=== PATIENT | female | born 1940 | race Hispanic/Latino ===

== ENCOUNTER 2022-04-02 07:40 | Inpatient (IN) | payer MEDICARE ==
[~2022-04-02] VITALS: Ht 147.3 cm; Wt 50.8 kg
[2022-04-02 08:35] LABS: BASOPHILS % 0.3 % (0.0-1.0); EOSINOPHILS # (AUTO) 0.2 (0.0-0.4); EOSINOPHILS % 2.4 % (0.0-6.0); HEMATOCRIT 33.9 % (34.2-44.1); HEMOGLOBIN 10.6 g/dL (12.0-16.0); LYMPHOCYTES % 28.2 % (18.0-39.1); MEAN CORPUSCULAR HEMOGLOBIN 30.8 pg (28-32); MEAN CORPUSCULAR HGB CONC 31.3 g/dL (31-35); MEAN CORPUSCULAR VOLUME 98.5 fL (81-99); MONOCYTES # (AUTO) 0.3 (0.2-0.8); MONOCYTES % 4.4 % (4.4-11.3); NEUTROPHILS # (AUTO) 4.5 (2.1-6.9); NEUTROPHILS % 64.4 % (38.7-80.0); PLATELET COUNT 142 x10e3/uL (140-360); RED BLOOD COUNT 3.44 x10e6/uL (3.6-5.1); RED CELL DISTRIBUTION WIDTH 14.2 % (11.7-14.4)
[2022-04-02 08:42] LABS: ALBUMIN 3.4 g/dL (3.5-5.0); ALBUMIN/GLOBULIN RATIO 0.9 (0.8-2.0); ANION GAP 13.5 mmol/L (8-16); CALCIUM 9.5 mg/dL (8.4-10.2); CREATININE, SERUM 1.03 mg/dL (0.57-1.11); POTASSIUM 3.5 mmol/L (3.5-5.1)
[2022-04-02] MEDS ORDERED: FUROSEMIDE INJ 10 MG/ML 4 ML VIAL IV ONE (10:00)
[2022-04-02 10:10] LABS: CLARITY,URINE CLEAR (CLEAR); COLOR,URINE YELLOW (YELLOW); KETONES,URINE NEGATIVE (NEGATIVE); LEUKOCYTE ESTERASE ,URINE NEGATIVE (NEGATIVE); NITRITE,URINE NEGATIVE (NEGATIVE); PROTEIN,URINE DIPSTICK 2+ (NEGATIVE); URINE UROBILINOGEN 0.2 mg/dL (0.2 - 1)
[2022-04-02 10:30] LABS: BACTERIA,URINE MODERATE /HPF; EPITHELIAL CELLS,URINE FEW /LPF; TRANSITIONAL EPI CELLS,URINE RARE; WBC,URINE (MAN) 0-5 /HPF (0-5)
[2022-04-02 14:46] VITALS: BP 162/72
[2022-04-02 14:52] VITALS: BP 162/72
[2022-04-02] MEDS ORDERED: FOLIC ACID0.4 MG PO (14:59)
[2022-04-02] MEDS ORDERED: PREDNISONE5 MG PO (14:59)
[2022-04-02] MEDS ORDERED: LATANOPROST2.5 ML OU (14:59)
[2022-04-02] MEDS ORDERED: EUTHYROX100 MCG PO (14:59)
[2022-04-02] MEDS ORDERED: LOPRESSOR25 MG PO (14:59)
[2022-04-02] MEDS ORDERED: ATORVASTATIN CA20 MG PO (14:59)
[2022-04-02] MEDS ORDERED: GABAPENTIN100 MG PO (14:59)
[2022-04-02] MEDS ORDERED: ESIDRIX25 MG PO (14:59)
[2022-04-02] MEDS ORDERED: AMLODIPINE BES2.5 MG PO (14:59)
[2022-04-02] MEDS ORDERED: HYDROXYCHLOROQ200 MG PO (14:59)
[2022-04-02 16:37] VITALS: BP 162/72
[2022-04-02 20:00] VITALS: BP 179/76
[2022-04-02] MEDS: FUROSEMIDE INJ 10 MG/ML 4 ML VIAL IV SCH (21:24)
[2022-04-02] MEDS: HYDRALAZINE HCL 25 MG TAB PO SCH (21:24)
[2022-04-03] VITALS (9 sets, daily range): BP systolic 99–163; BP diastolic 55–76
[2022-04-03] MEDS: HYDRALAZINE HCL 25 MG TAB PO SCH ×3 (05:36→20:33)
[2022-04-03 05:42] LABS: EOSINOPHILS # (AUTO) 0.1 (0.0-0.4); EOSINOPHILS % 0.9 % (0.0-6.0); HEMATOCRIT 33.2 % (34.2-44.1); HEMOGLOBIN 10.7 g/dL (12.0-16.0); LYMPHOCYTES # (AUTO) 0.8 (1.0-3.2); LYMPHOCYTES % 12.4 % (18.0-39.1); MEAN CORPUSCULAR HEMOGLOBIN 30.2 pg (28-32); MEAN CORPUSCULAR HGB CONC 32.2 g/dL (31-35); MEAN CORPUSCULAR VOLUME 93.8 fL (81-99); MONOCYTES # (AUTO) 0.3 (0.2-0.8); MONOCYTES % 4.1 % (4.4-11.3); NEUTROPHILS # (AUTO) 5.4 (2.1-6.9); NEUTROPHILS % 82.4 % (38.7-80.0); PLATELET COUNT 152 x10e3/uL (140-360); RED BLOOD COUNT 3.54 x10e6/uL (3.6-5.1)
[2022-04-03 06:08] LABS: CALCIUM 9.1 mg/dL (8.4-10.2); CREATININE, SERUM 1.24 mg/dL (0.57-1.11)
[2022-04-03] MEDS: FUROSEMIDE INJ 10 MG/ML 4 ML VIAL IV SCH (09:17)
[2022-04-03] MEDS: PREDNISONE 5 MG TAB PO SCH (10:57)
[2022-04-03] MEDS: HYDROXYCHLOROQUINE SULFATE 200 MG TAB PO SCH (10:57)
[2022-04-03] MEDS: METOPROLOL TARTRATE 25 MG TAB PO SCH ×2 (10:58→16:07)
[2022-04-03] MEDS ORDERED: POTASSIUM CHLORIDE 10MEQ EA PO ONE (11:00)
[2022-04-03] MEDS ORDERED: ACETAMINOPHEN 325 MG TAB PO PRN (11:30)
[2022-04-03] MEDS ORDERED: HYDROCODONE/APAP 5MG-325MG TAB PO PRN (11:30)
[2022-04-03] MEDS ORDERED: FUROSEMIDE INJ 10 MG/ML 2 ML VIAL IV ONE (15:00)
[2022-04-03] MEDS: ENOXAPARIN SOD INJ 40 MG/0.4 ML SYR SC SCH (16:08)
[2022-04-03] MEDS: GABAPENTIN 100 MG CAP PO SCH (20:33)
[2022-04-03] MEDS: ATORVASTATIN 20 MG TAB PO SCH (21:31)
[2022-04-04] VITALS (8 sets, daily range): BP systolic 112–136; BP diastolic 49–86
[2022-04-04 05:45] LABS: BASOPHILS % 0.2 % (0.0-1.0); EOSINOPHILS # (AUTO) 0.1 (0.0-0.4); EOSINOPHILS % 0.8 % (0.0-6.0); HEMATOCRIT 31.9 % (34.2-44.1); HEMOGLOBIN 10.1 g/dL (12.0-16.0); LYMPHOCYTES # (AUTO) 0.6 (1.0-3.2); LYMPHOCYTES % 8.6 % (18.0-39.1); MEAN CORPUSCULAR HEMOGLOBIN 30.2 pg (28-32); MEAN CORPUSCULAR HGB CONC 31.7 g/dL (31-35); MEAN CORPUSCULAR VOLUME 95.5 fL (81-99); MONOCYTES # (AUTO) 0.3 (0.2-0.8); MONOCYTES % 4.1 % (4.4-11.3); NEUTROPHILS # (AUTO) 5.6 (2.1-6.9); PLATELET COUNT 154 x10e3/uL (140-360); RED BLOOD COUNT 3.34 x10e6/uL (3.6-5.1); RED CELL DISTRIBUTION WIDTH 14.3 % (11.7-14.4)
[2022-04-04 06:03] LABS: ANION GAP 15.6 mmol/L (8-16); CALCIUM 8.9 mg/dL (8.4-10.2); CREATININE, SERUM 1.64 mg/dL (0.57-1.11); POTASSIUM 3.6 mmol/L (3.5-5.1)
[2022-04-04] MEDS: HYDRALAZINE HCL 25 MG TAB PO SCH ×3 (06:04→20:46)
[2022-04-04 06:15] LABS: CHOL/HDL RATIO 2.4 (3.0-3.6); MAGNESIUM 1.8 MG/DL (1.3-2.1)
[2022-04-04 06:35] LABS: THYROID STIMULATING HORMONE 0.256 uIU/mL (0.350-4.940)
[2022-04-04] MEDS ORDERED: LEVOTHYROXINE SODIUM 100 MCG TAB PO SCH (07:30)
[2022-04-04] MEDS: PREDNISONE 5 MG TAB PO SCH (08:16)
[2022-04-04] MEDS: HYDROXYCHLOROQUINE SULFATE 200 MG TAB PO SCH (08:16)
[2022-04-04] MEDS: METOPROLOL TARTRATE 25 MG TAB PO SCH ×2 (08:16→17:04)
[2022-04-04] MEDS ORDERED: FUROSEMIDE INJ 10 MG/ML 4 ML VIAL IV SCH (09:00)
[2022-04-04] MEDS ORDERED: PREDNISONE 5 MG TAB PO SCH (09:00)
[2022-04-04] MEDS ORDERED: HYDROXYCHLOROQUINE SULFATE 200 MG TAB PO SCH (09:00)
[2022-04-04] MEDS: ENOXAPARIN SOD INJ 40 MG/0.4 ML SYR SC SCH (17:04)
[2022-04-04] MEDS: ATORVASTATIN 20 MG TAB PO SCH (20:45)
[2022-04-04] MEDS: GABAPENTIN 100 MG CAP PO SCH (20:45)
[2022-04-05] VITALS (8 sets, daily range): BP systolic 117–147; BP diastolic 40–70
[2022-04-05] MEDS: HYDRALAZINE HCL 25 MG TAB PO SCH ×3 (05:39→21:29)
[2022-04-05] MEDS ORDERED: FUROSEMIDE 20 MG TAB PO SCH (09:00)
[2022-04-05] MEDS ORDERED: AZITHROMYCIN 250 MG TAB PO SCH (10:15)
[2022-04-05] MEDS: METOPROLOL TARTRATE 25 MG TAB PO SCH ×2 (11:10→17:40)
[2022-04-05] MEDS: PREDNISONE 5 MG TAB PO SCH (11:10)
[2022-04-05] MEDS: HYDROXYCHLOROQUINE SULFATE 200 MG TAB PO SCH (11:10)
[2022-04-05] MEDS: LEVOTHYROXINE SODIUM 100 MCG TAB PO SCH (11:20)
[2022-04-05 17:01] LABS: CREATININE,URINE RANDOM 95.93 mg/dL (47-110); TOTAL PROTEIN, URINE 19.8 mg/dL (1-14)
[2022-04-05] MEDS: ENOXAPARIN SOD INJ 40 MG/0.4 ML SYR SC SCH (17:40)
[2022-04-05] MEDS: GABAPENTIN 100 MG CAP PO SCH (21:27)
[2022-04-05] MEDS: ATORVASTATIN 20 MG TAB PO SCH (21:28)
[2022-04-06] VITALS: BP 121/59
[2022-04-06 06:16] LABS: ALBUMIN 2.5 g/dL (3.5-5.0); ALBUMIN/GLOBULIN RATIO 0.8 (0.8-2.0); ANION GAP 15.2 mmol/L (8-16); CALCIUM 8.9 mg/dL (8.4-10.2); CREATININE, SERUM 1.68 mg/dL (0.57-1.11); POTASSIUM 3.2 mmol/L (3.5-5.1)
[2022-04-06] MEDS: LEVOTHYROXINE SODIUM 100 MCG TAB PO SCH (06:47)
[2022-04-06] MEDS: HYDRALAZINE HCL 25 MG TAB PO SCH ×3 (06:47→21:46)
[2022-04-06 09:00] VITALS: BP 120/58
[2022-04-06 09:41] VITALS: BP 128/40
[2022-04-06] MEDS: METOPROLOL TARTRATE 25 MG TAB PO SCH ×2 (10:40→16:51)
[2022-04-06] MEDS: PREDNISONE 5 MG TAB PO SCH (10:40)
[2022-04-06] MEDS: AZITHROMYCIN 250 MG TAB PO SCH (10:40)
[2022-04-06] MEDS: HYDROXYCHLOROQUINE SULFATE 200 MG TAB PO SCH (10:41)
[2022-04-06 12:31] VITALS: BP 142/40
[2022-04-06] MEDS: POTASSIUM CHLORIDE 20MEQ/100ML 100 ML IV SCH ×2 (12:53→15:14)
[2022-04-06 16:37] VITALS: BP 112/61
[2022-04-06] MEDS: ENOXAPARIN SOD INJ 40 MG/0.4 ML SYR SC SCH (16:51)
[2022-04-06 20:00] VITALS: BP 103/50
[2022-04-06] MEDS: ATORVASTATIN 20 MG TAB PO SCH (21:46)
[2022-04-06] MEDS: GABAPENTIN 100 MG CAP PO SCH (21:46)
[2022-04-07 04:00] VITALS: BP 115/49
[2022-04-07] MEDS: HYDRALAZINE HCL 25 MG TAB PO SCH ×3 (06:00→22:16)
[2022-04-07] MEDS: LEVOTHYROXINE SODIUM 100 MCG TAB PO SCH (06:00)
[2022-04-07 06:18] LABS: ALBUMIN 2.7 g/dL (3.5-5.0); ALBUMIN/GLOBULIN RATIO 0.9 (0.8-2.0); ANION GAP 12.8 mmol/L (8-16); CALCIUM 8.6 mg/dL (8.4-10.2); CREATININE, SERUM 1.54 mg/dL (0.57-1.11); POTASSIUM 3.8 mmol/L (3.5-5.1)
[2022-04-07 08:25] VITALS: BP 138/49
[2022-04-07] MEDS: METOPROLOL TARTRATE 25 MG TAB PO SCH ×2 (08:50→16:56)
[2022-04-07] MEDS: HYDROXYCHLOROQUINE SULFATE 200 MG TAB PO SCH (08:51)
[2022-04-07] MEDS: PREDNISONE 5 MG TAB PO SCH (08:51)
[2022-04-07] MEDS: AZITHROMYCIN 250 MG TAB PO SCH (08:51)
[2022-04-07 09:02] VITALS: BP 138/49
[2022-04-07 12:12] VITALS: BP 135/60
[2022-04-07 16:17] VITALS: BP 131/49
[2022-04-07] MEDS: ENOXAPARIN SOD INJ 40 MG/0.4 ML SYR SC SCH (16:57)
[2022-04-07 20:00] VITALS: BP 122/54
[2022-04-07] MEDS: GABAPENTIN 100 MG CAP PO SCH (22:16)
[2022-04-07] MEDS: ATORVASTATIN 20 MG TAB PO SCH (22:17)
[2022-04-08] VITALS (7 sets, daily range): BP systolic 117–153; BP diastolic 47–55
[2022-04-08 05:18] LABS: BASOPHILS % 0.4 % (0.0-1.0); EOSINOPHILS # (AUTO) 0.2 (0.0-0.4); EOSINOPHILS % 4.9 % (0.0-6.0); HEMATOCRIT 28.6 % (34.2-44.1); HEMOGLOBIN 8.8 g/dL (12.0-16.0); LYMPHOCYTES # (AUTO) 0.6 (1.0-3.2); LYMPHOCYTES % 12.8 % (18.0-39.1); MEAN CORPUSCULAR HGB CONC 30.8 g/dL (31-35); MEAN CORPUSCULAR VOLUME 97.6 fL (81-99); MONOCYTES # (AUTO) 0.4 (0.2-0.8); MONOCYTES % 7.8 % (4.4-11.3); NEUTROPHILS # (AUTO) 3.6 (2.1-6.9); NEUTROPHILS % 73.9 % (38.7-80.0); PLATELET COUNT 170 x10e3/uL (140-360); RED BLOOD COUNT 2.93 x10e6/uL (3.6-5.1)
[2022-04-08 05:39] LABS: CREATININE, SERUM 1.37 mg/dL (0.57-1.11)
[2022-04-08] MEDS: HYDRALAZINE HCL 25 MG TAB PO SCH ×3 (05:54→20:48)
[2022-04-08] MEDS: LEVOTHYROXINE SODIUM 100 MCG TAB PO SCH (06:23)
[2022-04-08] MEDS: AZITHROMYCIN 250 MG TAB PO SCH (09:37)
[2022-04-08] MEDS: PREDNISONE 5 MG TAB PO SCH (09:38)
[2022-04-08] MEDS: METOPROLOL TARTRATE 25 MG TAB PO SCH ×2 (09:38→16:43)
[2022-04-08] MEDS: HYDROXYCHLOROQUINE SULFATE 200 MG TAB PO SCH (09:38)
[2022-04-08] MEDS: ENOXAPARIN SOD INJ 40 MG/0.4 ML SYR SC SCH (16:42)
[2022-04-08] MEDS: GABAPENTIN 100 MG CAP PO SCH (20:47)
[2022-04-08] MEDS: ATORVASTATIN 20 MG TAB PO SCH (20:47)
[2022-04-09 00:45] VITALS: BP 123/45
[2022-04-09 04:00] VITALS: BP 124/49
[2022-04-09] MEDS: LEVOTHYROXINE SODIUM 100 MCG TAB PO SCH (05:54)
[2022-04-09] MEDS: HYDRALAZINE HCL 25 MG TAB PO SCH (05:54)
[2022-04-09 08:30] VITALS: BP 149/55
[2022-04-09] MEDS: AZITHROMYCIN 250 MG TAB PO SCH (09:05)
[2022-04-09] MEDS: HYDROXYCHLOROQUINE SULFATE 200 MG TAB PO SCH (09:05)
[2022-04-09] MEDS: PREDNISONE 5 MG TAB PO SCH (09:06)
[2022-04-09] MEDS: METOPROLOL TARTRATE 25 MG TAB PO SCH (09:06)
[2022-04-09 09:11] VITALS: BP 149/55
[2022-04-09 12:22] VITALS: BP 147/65
== END 2022-04-09 12:45 | disposition home or self-care (01) | DRG 193 ==
LOC: ER 07:53 → ERHOLD 09:29 → MED/SURG 13:27 → OBSVTOIN 04-03 10:00
PROVIDERS: ADMIT Internal Medicine; ATTEND Internal Medicine
DX: J18.9 Pneumonia, unspecified organism (principal); I50.43 Acute on chronic combined systolic (congestive) and diastolic (congestive) heart failure; I13.0 Hypertensive heart and chronic kidney disease with heart failure and stage 1 through stage 4 chronic kidney disease, or unspecified chronic kidney disease; E03.9 Hypothyroidism, unspecified; I44.7 Left bundle-branch block, unspecified; M06.9 Rheumatoid arthritis, unspecified; E78.5 Hyperlipidemia, unspecified; I25.10 Atherosclerotic heart disease of native coronary artery without angina pectoris; N18.32 Chronic kidney disease, stage 3b; I25.5 Ischemic cardiomyopathy; Z20.822 Contact with and (suspected) exposure to COVID-19; Z59.6 Low income
CPT/HCPCS: 36415; 51700; 71045; 71250; 74018; 74240; 76770; 80048; 80053; 80061; 81001; 82570; 82607; 82746; 83036; 83605; 83735; 83880; 84100; 84156; 84443; 84484; 85025; 86039; 86200; 86431; 87040; 93005; 93306; 94799; 99285; G0378; J0456; J0696; J1650; J1940; J3480; J7050; J7512

== ENCOUNTER 2022-04-18 12:28 | Emergency (ER) | payer MEDICARE ==
[~2022-04-18] VITALS: Ht 269.2 cm; Wt 50.8 kg
[~2022-04-18 12:28] MED LIST: AMLODIPINE BES2.5 MG PO; ATORVASTATIN CA20 MG PO; ESIDRIX25 MG PO; EUTHYROX100 MCG PO; FOLIC ACID0.4 MG PO; GABAPENTIN100 MG PO; HYDROXYCHLOROQ200 MG PO; LATANOPROST2.5 ML OU; LOPRESSOR25 MG PO; PREDNISONE5 MG PO
[2022-04-18 13:25] LABS: BASOPHILS % 0.3 % (0.0-1.0); EOSINOPHILS # (AUTO) 0.1 (0.0-0.4); EOSINOPHILS % 1.4 % (0.0-6.0); HEMATOCRIT 31.9 % (34.2-44.1); HEMOGLOBIN 10.1 g/dL (12.0-16.0); LYMPHOCYTES # (AUTO) 1.4 (1.0-3.2); LYMPHOCYTES % 20.1 % (18.0-39.1); MEAN CORPUSCULAR HEMOGLOBIN 30.3 pg (28-32); MEAN CORPUSCULAR HGB CONC 31.7 g/dL (31-35); MEAN CORPUSCULAR VOLUME 95.8 fL (81-99); MONOCYTES # (AUTO) 0.6 (0.2-0.8); MONOCYTES % 8.2 % (4.4-11.3); NEUTROPHILS # (AUTO) 4.8 (2.1-6.9); NEUTROPHILS % 69.6 % (38.7-80.0); PLATELET COUNT 161 x10e3/uL (140-360); RED BLOOD COUNT 3.33 x10e6/uL (3.6-5.1); RED CELL DISTRIBUTION WIDTH 14.6 % (11.7-14.4)
[2022-04-18 13:57] LABS: ALBUMIN 3.4 g/dL (3.5-5.0); ALBUMIN/GLOBULIN RATIO 1.1 (0.8-2.0); ANION GAP 17.5 mmol/L (8-16); CALCIUM 8.9 mg/dL (8.4-10.2); CREATININE, SERUM 1.97 mg/dL (0.57-1.11); POTASSIUM 3.5 mmol/L (3.5-5.1)
[2022-04-18 15:14] LABS: CLARITY,URINE CLEAR (CLEAR); COLOR,URINE YELLOW (YELLOW)
[2022-04-18 15:17] LABS: BACTERIA,URINE FEW /HPF; EPITHELIAL CELLS,URINE FEW /LPF; KETONES,URINE NEGATIVE (NEGATIVE); LEUKOCYTE ESTERASE ,URINE NEGATIVE (NEGATIVE); NITRITE,URINE NEGATIVE (NEGATIVE); PROTEIN,URINE DIPSTICK TRACE (NEGATIVE); RBC,URINE 0-5 /HPF (0-5); URINE UROBILINOGEN 0.2 mg/dL (0.2 - 1); WBC,URINE (MAN) 0-5 /HPF (0-5)
[2022-04-18 15:19] LABS: AMORPHOUS SEDIMENT,URINE FEW (FEW)
[2022-04-18 16:12] VITALS: BP 151/44
== END 2022-04-18 16:24 | disposition home or self-care (01) ==
LOC: ER 12:32
DX: R53.1 Weakness (principal); I10 Essential (primary) hypertension; E78.5 Hyperlipidemia, unspecified; I50.9 Heart failure, unspecified; E03.9 Hypothyroidism, unspecified; I25.10 Atherosclerotic heart disease of native coronary artery without angina pectoris; M32.9 Systemic lupus erythematosus, unspecified; R94.31 Abnormal electrocardiogram [ECG] [EKG]
CPT/HCPCS: 36415; 70450; 71045; 80053; 81001; 83880; 84484; 85025; 93005; 99284

== ENCOUNTER 2022-06-11 14:30 | Inpatient (IN) | payer MEDICARE ==
[~2022-06-11] VITALS: Ht 142.2 cm; Wt 48.5 kg
[2022-06-11] MEDS ORDERED: FUROSEMIDE INJ 10 MG/ML 2 ML VIAL IV ONE (15:00)
[2022-06-11 15:39] LABS: BASOPHILS % 0.3 % (0.0-1.0); EOSINOPHILS % 0.3 % (0.0-6.0); HEMATOCRIT 29.6 % (34.2-44.1); HEMOGLOBIN 9.4 g/dL (12.0-16.0); LYMPHOCYTES % 14.3 % (18.0-39.1); MEAN CORPUSCULAR HEMOGLOBIN 30.8 pg (28-32); MEAN CORPUSCULAR HGB CONC 31.8 g/dL (31-35); MONOCYTES # (AUTO) 0.3 (0.2-0.8); MONOCYTES % 3.7 % (4.4-11.3); NEUTROPHILS # (AUTO) 5.7 (2.1-6.9); NEUTROPHILS % 81.1 % (38.7-80.0); PLATELET COUNT 118 x10e3/uL (140-360); RED BLOOD COUNT 3.05 x10e6/uL (3.6-5.1); RED CELL DISTRIBUTION WIDTH 15.4 % (11.7-14.4)
[2022-06-11 15:59] LABS: ALBUMIN 3.3 g/dL (3.5-5.0); ALBUMIN/GLOBULIN RATIO 0.9 (0.8-2.0); ANION GAP 11.7 mmol/L (8-16); CALCIUM 9.2 mg/dL (8.4-10.2); CREATININE, SERUM 1.16 mg/dL (0.57-1.11); POTASSIUM 3.7 mmol/L (3.5-5.1)
[2022-06-11] MEDS ORDERED: ONDANSETRON HCL INJ 2MG/ML 2ML 2 MG/ML VIAL IV PRN (17:00)
[2022-06-11 17:22] LABS: CREATINE KINASE MB 0.9 ng/mL (0-5.0)
[2022-06-11 22:37] VITALS: BP 119/62; PULSE 70; RESP 18; TEMP 97.3; O2SAT 98
[2022-06-12] VITALS (11 sets, daily range): BP systolic 116–170; BP diastolic 62–80; PULSE 62–97; RESP 15–20; TEMP 97.1–98.8; O2SAT 96–100
[2022-06-12] MEDS ORDERED: FUROSEMIDE INJ 10 MG/ML 4 ML VIAL IV ONE (03:45)
[2022-06-12] MEDS: FUROSEMIDE INJ 10 MG/ML 4 ML VIAL IV SCH ×2 (06:00→11:57)
[2022-06-12] MEDS ORDERED: PREDNISONE5 MG PO (06:20)
[2022-06-12] MEDS ORDERED: NEURONTIN100 MG PO (06:20)
[2022-06-12] MEDS ORDERED: METOPROLOL TART50 MG PO (06:20)
[2022-06-12] MEDS ORDERED: LEVOTHYROXINE100 MC1 IV (06:20)
[2022-06-12] MEDS ORDERED: ATORVASTATIN CA20 MG PO (06:20)
[2022-06-12] MEDS ORDERED: FOLIC ACID-VIT1 EACH PO (06:20)
[2022-06-12] MEDS ORDERED: ASPIRIN81 MG PO (06:20)
[2022-06-12] MEDS ORDERED: PLAQUENIL200 MG PO (06:20)
[2022-06-12] MEDS ORDERED: LEVOTHYROXINE SODIUM 100 MCG/VIAL IV SCH (09:00)
[2022-06-12] MEDS: PREDNISONE 5 MG TAB PO SCH (09:00)
[2022-06-12] MEDS: METOPROLOL TARTRATE 50 MG TAB PO SCH ×2 (09:00→17:20)
[2022-06-12] MEDS: ASPIRIN 81 MG CHEW TAB PO SCH (09:00)
[2022-06-12] MEDS ORDERED: HYDROXYCHLOROQUINE SULFATE 200 MG TAB PO SCH (09:00)
[2022-06-12 09:24] LABS: CALCIUM 8.9 mg/dL (8.4-10.2); CREATININE, SERUM 1.13 mg/dL (0.57-1.11)
[2022-06-12 10:01] LABS: CREATINE KINASE MB 0.9 ng/mL (0-5.0)
[2022-06-12] MEDS: POTASSIUM CHLORIDE 20 MEQ TAB CR PO SCH ×2 (11:00→13:44)
[2022-06-12] MEDS ORDERED: POTASSIUM CHLORIDE 10MEQ EA PO ONE ×2 (11:00→14:15)
[2022-06-12] MEDS: FOLIC ACID/CYANOCOB/PYRIDOXINE TAB PO SCH (11:10)
[2022-06-12] MEDS: ENOXAPARIN SOD INJ 40 MG/0.4 ML SYR SC SCH (17:19)
[2022-06-12 18:23] LABS: CREATINE KINASE MB 1.4 ng/mL (0-5.0)
[2022-06-12] MEDS: ATORVASTATIN 20 MG TAB PO SCH (20:54)
[2022-06-12] MEDS: GABAPENTIN 100 MG CAP PO SCH (20:54)
[2022-06-12] MEDS: HYDROXYCHLOROQUINE SULFATE 200 MG TAB PO SCH (20:54)
[2022-06-13] VITALS (13 sets, daily range): BP systolic 101–144; BP diastolic 51–69; PULSE 64–80; RESP 14–18; TEMP 97.1–98.7; O2SAT 95–100
[2022-06-13 05:47] LABS: BASOPHILS % 0.5 % (0.0-1.0); EOSINOPHILS # (AUTO) 0.1 (0.0-0.4); EOSINOPHILS % 2.3 % (0.0-6.0); HEMATOCRIT 29.3 % (34.2-44.1); HEMOGLOBIN 9.3 g/dL (12.0-16.0); LYMPHOCYTES # (AUTO) 0.8 (1.0-3.2); LYMPHOCYTES % 17.4 % (18.0-39.1); MEAN CORPUSCULAR HEMOGLOBIN 31.2 pg (28-32); MEAN CORPUSCULAR HGB CONC 31.7 g/dL (31-35); MEAN CORPUSCULAR VOLUME 98.3 fL (81-99); MONOCYTES # (AUTO) 0.2 (0.2-0.8); MONOCYTES % 4.8 % (4.4-11.3); NEUTROPHILS # (AUTO) 3.3 (2.1-6.9); NEUTROPHILS % 74.8 % (38.7-80.0); PLATELET COUNT 102 x10e3/uL (140-360); RED BLOOD COUNT 2.98 x10e6/uL (3.6-5.1); RED CELL DISTRIBUTION WIDTH 14.8 % (11.7-14.4)
[2022-06-13 06:03] LABS: CALCIUM 8.5 mg/dL (8.4-10.2); CREATININE, SERUM 1.25 mg/dL (0.57-1.11); PHOSPHORUS 2.5 MG/DL (2.3-4.7)
[2022-06-13 06:24] LABS: THYROID STIMULATING HORMONE 0.55 uIU/mL (0.350-4.940)
[2022-06-13] MEDS: FUROSEMIDE INJ 10 MG/ML 4 ML VIAL IV SCH ×2 (06:35→12:27)
[2022-06-13] MEDS: ASPIRIN 81 MG CHEW TAB PO SCH (08:39)
[2022-06-13] MEDS: PREDNISONE 5 MG TAB PO SCH (08:39)
[2022-06-13] MEDS: FOLIC ACID/CYANOCOB/PYRIDOXINE TAB PO SCH (08:39)
[2022-06-13] MEDS: POTASSIUM CHLORIDE 20 MEQ TAB CR PO SCH (08:40)
[2022-06-13] MEDS: METOPROLOL TARTRATE 50 MG TAB PO SCH ×2 (08:40→15:33)
[2022-06-13] MEDS ORDERED: SODIUM CHLORIDE 0.9% 250ML 250 ML ONE (08:42)
[2022-06-13] MEDS: VALSARTAN/SACUBITRIL 24MG/26MG 1 EA TAB PO SCH (15:33)
[2022-06-13] MEDS: ENOXAPARIN SOD INJ 40 MG/0.4 ML SYR SC SCH (16:05)
[2022-06-13] MEDS: HYDROXYCHLOROQUINE SULFATE 200 MG TAB PO SCH (20:59)
[2022-06-13] MEDS: ATORVASTATIN 20 MG TAB PO SCH (20:59)
[2022-06-13] MEDS: GABAPENTIN 100 MG CAP PO SCH (20:59)
[2022-06-14] VITALS: BP 110/62; PULSE 70; RESP 18; TEMP 97.1; O2SAT 98
[2022-06-14 04:00] VITALS: BP 128/61; PULSE 74; RESP 18; TEMP 98.4; O2SAT 98
[2022-06-14] MEDS: FUROSEMIDE INJ 10 MG/ML 4 ML VIAL IV SCH (05:51)
[2022-06-14 08:25] VITALS: BP 148/79; PULSE 83; RESP 16; TEMP 97.8; O2SAT 94
[2022-06-14 08:51] VITALS: BP 148/79; PULSE 83; RESP 16; TEMP 97.8; O2SAT 94
[2022-06-14] MEDS: VALSARTAN/SACUBITRIL 24MG/26MG 1 EA TAB PO SCH (08:58)
[2022-06-14] MEDS: ASPIRIN 81 MG CHEW TAB PO SCH (08:59)
[2022-06-14] MEDS: PREDNISONE 5 MG TAB PO SCH (08:59)
[2022-06-14] MEDS: FOLIC ACID/CYANOCOB/PYRIDOXINE TAB PO SCH (08:59)
[2022-06-14] MEDS: POTASSIUM CHLORIDE 20 MEQ TAB CR PO SCH (09:00)
[2022-06-14] MEDS: METOPROLOL TARTRATE 50 MG TAB PO SCH (09:03)
[2022-06-14 09:20] LABS: ANION GAP 13.5 mmol/L (8-16); CALCIUM 8.7 mg/dL (8.4-10.2); CREATININE, SERUM 1.23 mg/dL (0.57-1.11); POTASSIUM 3.5 mmol/L (3.5-5.1)
[2022-06-14 09:37] VITALS: BP 148/79; RESP 16; TEMP 97.8; O2SAT 94
[2022-06-14] MEDS ORDERED: AZITHROMYCIN 250 MG TAB PO SCH (17:00)
== END 2022-06-14 11:08 | disposition home or self-care (01) | DRG 291 ==
LOC: ER 14:41 → MERGE 16:56 → ERHOLD 16:56 → MED/SURG 22:53
PROVIDERS: ADMIT Internal Medicine; ATTEND Internal Medicine
DX: I13.0 Hypertensive heart and chronic kidney disease with heart failure and stage 1 through stage 4 chronic kidney disease, or unspecified chronic kidney disease (principal); I50.23 Acute on chronic systolic (congestive) heart failure; J18.9 Pneumonia, unspecified organism; N18.30 Chronic kidney disease, stage 3 unspecified; M06.9 Rheumatoid arthritis, unspecified; E03.9 Hypothyroidism, unspecified; E78.00 Pure hypercholesterolemia, unspecified; D63.8 Anemia in other chronic diseases classified elsewhere; E78.5 Hyperlipidemia, unspecified; E87.8 Other disorders of electrolyte and fluid balance, not elsewhere classified; M32.9 Systemic lupus erythematosus, unspecified; I25.10 Atherosclerotic heart disease of native coronary artery without angina pectoris
CPT/HCPCS: 36415; 71045; 71250; 80048; 80053; 82550; 82553; 82607; 83540; 83735; 83880; 84100; 84443; 84466; 84484; 85025; 85379; 87040; 87071; 87205; 93005; 93306; 94799; 99284; J0696; J1650; J1940; J7050; J7512